=== PATIENT | female | born 1980 | race Two or more races ===

== ENCOUNTER → 2017-12-27 | Outpatient (CLI) | payer MEDICAID ==
[~2017-12-27] VITALS: Ht 165.1 cm; Wt 67.1 kg
== END | disposition home or self-care (01) ==
LOC: Rad HDHVI 12:59
PROVIDERS: ATTEND Internal Medicine Cardiovascular Disease
DX: I20.9 Angina pectoris, unspecified (principal); I20.0 Unstable angina
CPT/HCPCS: 78452; 93017; 93306; 96374; A9500